=== PATIENT | female | born 1995 | race Caucasian/White ===

== ENCOUNTER 2017-06-08 16:52 | Emergency (ER) | payer OTHER ==
[~2017-06-08] VITALS: Ht 165.1 cm; Wt 111.3 kg
[~2017-06-08 16:52] MED LIST: ANAPROX DS550 M1 PO; ENDOCET 5-3251 EACH PO; IBUPROFEN800 MG PO; KEFLEX500 MG PO; MINASTRIN 24 F1 EACH PO; MOTRIN800 MG PO; NAPROSYN500 MG PO; PEN-VEE K,VEET500 MG PO; TRAMADOL HCL50 MG PO; VENTOLIN HFA18 GM IH
[2017-06-08 16:59] VITALS: BP 121/66
[2017-06-08 17:42] LABS: ADD MIUA? YES; BILIRUBIN NEGATIVE; BLOOD NEGATIVE; COLOR STRAW ((YELLOW)); GLUCOSE (STRIP) NEGATIVE; KETONES NEGATIVE; LEUKOCYTES TRACE; NITRITE NEGATIVE; PROTEIN (STRIP) NEGATIVE; UROBILINOGEN 0.2 MG/DL (0.2-1.0)
[2017-06-08 17:48] LABS: BACTERIA RARE /HPF; EPITHELIAL CELLS RARE /HPF; MUCUS TRACE /LPF; RED BLOOD CELLS 0-5 /HPF (0-5); UCUL ADDED? NO; WHITE BLOOD CELLS 0-5 /HPF (0-5)
[2017-06-08] MEDS ORDERED: FLAGYL500 MG PO (17:52)
[2017-06-10 13:56] LABS: CHLAMYDIA TRACHOMATIS NEGATIVE; NEISSERIA GONORRHOEAE NEGATIVE
== END 2017-06-08 18:20 | disposition home or self-care (01) ==
LOC: EME 16:52
PROVIDERS: Physician Assistant
DX: Z20.2 Contact with and (suspected) exposure to infections with a predominantly sexual mode of transmission (principal)
CPT/HCPCS: 81003; 87210; 87491; 87591; 99281; 99284

== ENCOUNTER 2017-11-20 00:49 | Emergency (ER) | payer OTHER ==
[~2017-11-20] VITALS: Ht 165.1 cm; Wt 111.2 kg
[~2017-11-20 00:49] MED LIST changes: +FLAGYL500 MG PO
[2017-11-20 03:47] LABS: HEMATOCRIT 38.9 % (36.0-46.0); HEMOGLOBIN 13.1 G/DL (11.9-15.5); MCH 28.6 PG (29.0-34.0); MCHC 33.7 G/DL (30.0-36.0); MCV 84.9 FL (83-99); PLATELET COUNT 246 K/uL (156-360); RBC DIS.WIDTH-CV 12.6 % (11.8-14.6); RBC DIS.WIDTH-SD 38.5 % (39-53); RED BLOOD COUNT 4.58 M/uL (3.80-5.20); WHITE BLOOD COUNT 10.9 K/uL (4.1-10.2)
[2017-11-20 03:57] LABS: CHLORIDE 107 mEq/L (99-109); POTASSIUM 3.9 mEq/L (3.7-5.4)
[2017-11-20 03:58] LABS: SODIUM 137 mEq/L (136-147)
[2017-11-20 03:59] LABS: GLUCOSE 112 mg/dL (70-99)
[2017-11-20 04:03] LABS: CREATININE 0.8 mg/dL (0.6-1.3); GFR ESTIMATE (CALCULATED) > 59 mL/min/
[2017-11-20 04:04] LABS: UREA NITROGEN (BUN) 10 mg/dL (9-23)
[2017-11-20 04:11] LABS: QUANTITATIVE HCG < 4.0 MIU/ML
[2017-11-20] MEDS ORDERED: ZOFRAN4 MG PO (04:29)
[2017-11-20 04:53] VITALS: BP 87/87
== END 2017-11-20 04:55 | disposition home or self-care (01) ==
LOC: EME 00:49
PROVIDERS: Emergency Medicine
DX: R51 Headache (principal); F17.200 Nicotine dependence, unspecified, uncomplicated
CPT/HCPCS: 80048; 81003; 84702; 85027; 87502; 99281; 99285; J0780; J1200; J3030; J7030; S0020